=== PATIENT | female | born 1960 | race African-American/Black ===

== ENCOUNTER → 2018-05-03 | Outpatient (REF) ==
[~2018-05-03] MED LIST: ASPIRIN EC81 MG PO; ENALAPRIL5 MG PO; LORTAB 5-325 MG1 TAB PO; LOVASTATIN40 MG PO; MEGA BIOTIN10 MG PO; METFORMIN500 MG PO; MULTI VIT PO; ULTRAM50 M1 PO
== END | disposition home or self-care (01) | DRG 639 ==
LOC: LAB 07:31
PROVIDERS: ATTEND Internal Medicine Geriatric Medicine
DX: E11.9 Type 2 diabetes mellitus without complications (principal); I10 Essential (primary) hypertension

== ENCOUNTER → 2018-05-31 | Outpatient (REF) | END | disposition home or self-care (01) | DRG 696 | LOC: LABSPEC 09:48 | PROVIDERS: ATTEND Internal Medicine Geriatric Medicine | DX: R30.0 Dysuria (principal) ==

== ENCOUNTER 2018-06-09 21:13 | Emergency (ER) | payer OTHER ==
[~2018-06-09] VITALS: Ht 175.3 cm; Wt 95.0 kg
[2018-06-09 21:51] LABS: HEMATOCRIT 42.8 % (37.0-47.0); HEMOGLOBIN 13.2 g/dl (12.0-16.0); IMMATURE GRANULOCYTES 0.2 % (0.0-5.0); MEAN CELL VOLUME 93.7 fL CALC (80.0-100.0); MEAN CORPUSCULAR HGB 28.9 pG CALC (26.0-32.0); MEAN CORPUSCULAR HGB CONC 30.8 g/L CALC (32.0-36.0); NEUT# 7.35 thou/uL (2.00-7.15); RED BLOOD COUNT 4.57 mill/uL (4.20-5.60); RED CELL DISTRI WIDTH 14.4 % (11.5-15.5)
[2018-06-09 21:54] LABS: URINE BILIRUBIN - DIPSTICK NEGATIVE (NEGATIVE); URINE BLOOD DIPSTICK LARGE (NEGATIVE); URINE COLOR YELLOW; URINE GLUCOSE - DIPSTICK NEGATIVE (NEGATIVE); URINE KETONE NEGATIVE (NEGATIVE); URINE LEUK ESTERASE NEGATIVE (NEGATIVE); URINE NITRITE - DIPSTICK NEGATIVE (Negative); URINE PROTEIN - DIPSTICK NEGATIVE (NEG-TRACE); URINE UROBILINOGEN - DIPSTICK 0.2 E.U./dL (0.2)
[2018-06-09 22:03] LABS: URINE RBC TNTC RBC/hpf (0-5); URINE SQUAMOUS EPITHELIAL CELL FEW EPI/hpf (0-FEW)
[2018-06-09 22:06] LABS: ALBUMIN 4.4 g/dL (3.2-5.0); ALKALINE PHOSPHATASE 104 u/l (38-126); AMYLASE 115 u/l (30-110); ANION GAP 17 (6-22 (CALC)); BILIRUBIN, TOTAL 0.3 mg/dL (0.0-1.4); BUN 15 mg/dL (7-17); BUN/CREATININE RATIO 16 (12-20 (CALC)); CARBON DIOXIDE 28 mmol/l (22-30); CHLORIDE 100 mmol/l (95-108); CREATININE 0.9 mg/dL (0.5-1.0); GFR > 60 ML/MIN (>=60 (CALC)); GFR FOR AFR.AMER. > 60 ML/MIN (>=60 (CALC)); LIPASE 330 u/l (23-300); POTASSIUM 4.1 mmol/l (3.5-5.1); SGOT/AST 22 u/l (14-36); SODIUM 141 mmol/l (137-146); TOTAL PROTEIN 7.4 g/dL (6.3-8.2)
[2018-06-09] MEDS ORDERED: TAMSULOSIN0.4 MG PO (23:54)
[2018-06-09] MEDS ORDERED: CIPROFLOXACN500 MG PO (23:54)
[2018-06-09] MEDS ORDERED: LORTAB 1010 MG PO (23:54)
[2018-06-10 00:30] VITALS: BP 138/80
[2018-06-11] MEDS ORDERED: HORMONE REPLACEMENT PO (07:15)
[2018-06-11] MEDS ORDERED: ONDANSETRON4 MG PO (07:54)
== END 2018-06-10 00:33 | disposition home or self-care (01) | DRG 694 ==
LOC: ED 21:13
PROVIDERS: Emergency Medicine
DX: N20.1 Calculus of ureter (principal); E11.9 Type 2 diabetes mellitus without complications; I10 Essential (primary) hypertension

== ENCOUNTER 2018-06-11 06:27 | Emergency (ER) | payer OTHER ==
[~2018-06-11] VITALS: Ht 175.3 cm; Wt 77.2 kg
[~2018-06-11 06:27] MED LIST changes: +CIPROFLOXACN500 MG PO; +LORTAB 1010 MG PO; +TAMSULOSIN0.4 MG PO
[2018-06-11] MEDS ORDERED: HORMONE REPLACEMENT PO (07:15)
[2018-06-11 07:28] LABS: HEMATOCRIT 42.6 % (37.0-47.0); HEMOGLOBIN 13.3 g/dl (12.0-16.0); IMMATURE GRANULOCYTES 0.2 % (0.0-5.0); MEAN CELL VOLUME 92.2 fL CALC (80.0-100.0); MEAN CORPUSCULAR HGB 28.8 pG CALC (26.0-32.0); MEAN CORPUSCULAR HGB CONC 31.2 g/L CALC (32.0-36.0); NEUT# 9.68 thou/uL (2.00-7.15); RED BLOOD COUNT 4.62 mill/uL (4.20-5.60); RED CELL DISTRI WIDTH 14.3 % (11.5-15.5)
[2018-06-11 07:39] LABS: URINE BILIRUBIN - DIPSTICK NEGATIVE (NEGATIVE); URINE BLOOD DIPSTICK LARGE (NEGATIVE); URINE COLOR YELLOW; URINE GLUCOSE - DIPSTICK NEGATIVE (NEGATIVE); URINE KETONE 40 mg/dL (NEGATIVE); URINE LEUK ESTERASE NEGATIVE (NEGATIVE); URINE NITRITE - DIPSTICK NEGATIVE (Negative); URINE PH 6.5 (4.5-8.0); URINE PROTEIN - DIPSTICK 30 mg/dL (NEG-TRACE); URINE UROBILINOGEN - DIPSTICK 0.2 E.U./dL (0.2)
[2018-06-11 07:39] LABS: ALBUMIN 3.8 g/dL (3.2-5.0); ALKALINE PHOSPHATASE 73 u/l (38-126); ANION GAP 15 (6-22 (CALC)); BILIRUBIN, TOTAL 0.2 mg/dL (0.0-1.4); BUN 16 mg/dL (7-17); BUN/CREATININE RATIO 24 (12-20 (CALC)); CARBON DIOXIDE 26 mmol/l (22-30); CHLORIDE 102 mmol/l (95-108); CREATININE 0.7 mg/dL (0.5-1.0); GFR > 60 ML/MIN (>=60 (CALC)); GFR FOR AFR.AMER. > 60 ML/MIN (>=60 (CALC)); LIPASE 557 u/l (23-300); POTASSIUM 3.8 mmol/l (3.5-5.1); SGOT/AST 21 u/l (14-36); SODIUM 139 mmol/l (137-146); TOTAL PROTEIN 6.4 g/dL (6.3-8.2)
[2018-06-11 07:40] LABS: URINE RBC >100 RBC/hpf (0-5)
[2018-06-11] MEDS ORDERED: ONDANSETRON4 MG PO (07:54)
[2018-06-11 08:12] VITALS: BP 117/68
[2018-06-15] MEDS ORDERED: GLIPIZIDE ER5 M1 PO (13:59)
[2018-06-15] MEDS ORDERED: METFORMIN HYD1000 MG PO (14:00)
[2018-06-15] MEDS ORDERED: ESTRACE0.5 MG PO (14:01)
== END 2018-06-11 08:12 | disposition home or self-care (01) | DRG 392 ==
LOC: ED 06:27
PROVIDERS: Emergency Medicine
DX: R11.2 Nausea with vomiting, unspecified (principal); T50.905A Adverse effect of unspecified drugs, medicaments and biological substances, initial encounter; N20.0 Calculus of kidney; E11.9 Type 2 diabetes mellitus without complications; I10 Essential (primary) hypertension

== ENCOUNTER 2018-06-16 10:08 | Day surgery (SDC) | payer OTHER ==
[~2018-06-16 10:08] MED LIST changes: +ASPIRIN EC325 MG PO; -ASPIRIN EC81 MG PO; +ESTRACE0.5 MG PO; +GLIPIZIDE ER5 M1 PO; +HORMONE REPLACEMENT PO; +METFORMIN HYD1000 MG PO; +ONDANSETRON4 MG PO
[2018-06-16] MEDS ORDERED: PERCOCET 10/31 COMBO PO (13:40)
[2018-06-16 14:00] VITALS: BP 120/58
== END 2018-06-16 14:40 | disposition home or self-care (01) | DRG 661 ==
LOC: ORM 10:08
PROVIDERS: ATTEND Urology
PROC: 0T778DZ Dilation of Left Ureter with Intraluminal Device, Via Natural or Artificial Opening Endoscopic (ICD-10-PCS; principal; 2018-06-16)
PROC: BT1FZZZ Fluoroscopy of Left Kidney, Ureter and Bladder (ICD-10-PCS; 2018-06-16)
DX: N13.2 Hydronephrosis with renal and ureteral calculous obstruction (principal); E11.9 Type 2 diabetes mellitus without complications; I10 Essential (primary) hypertension
CPT/HCPCS: C1769; Q9967

== ENCOUNTER 2018-07-02 06:29 | Day surgery (SDC) | payer OTHER ==
[~2018-07-02 06:29] MED LIST changes: +PERCOCET 10/31 COMBO PO
[2018-07-02] MEDS ORDERED: PERCOCET 10/31 COMBO PO (10:47)
[2018-07-02 11:12] VITALS: BP 130/65
== END 2018-07-02 11:40 | disposition home or self-care (01) | DRG 661 ==
LOC: ORM 06:29
PROVIDERS: ATTEND Urology
PROC: 0TC18ZZ Extirpation of Matter from Left Kidney, Via Natural or Artificial Opening Endoscopic (ICD-10-PCS; principal; 2018-07-02)
PROC: 0TC78ZZ Extirpation of Matter from Left Ureter, Via Natural or Artificial Opening Endoscopic (ICD-10-PCS; 2018-07-02)
PROC: 0T778DZ Dilation of Left Ureter with Intraluminal Device, Via Natural or Artificial Opening Endoscopic (ICD-10-PCS; 2018-07-02)
PROC: 0TP98DZ Removal of Intraluminal Device from Ureter, Via Natural or Artificial Opening Endoscopic (ICD-10-PCS; 2018-07-02)
DX: N20.2 Calculus of kidney with calculus of ureter (principal); I10 Essential (primary) hypertension; E11.9 Type 2 diabetes mellitus without complications
CPT/HCPCS: Q9967

== ENCOUNTER 2018-12-17 06:34 | Emergency (ER) | payer OTHER ==
[~2018-12-17] VITALS: Ht 170.2 cm; Wt 93.0 kg
[2018-12-17 07:30] LABS: IMMATURE GRANULOCYTES 0.1 % (0.0-5.0); MEAN CELL VOLUME 91.9 fL CALC (80.0-100.0); MEAN CORPUSCULAR HGB 28.9 pG CALC (26.0-32.0); MEAN CORPUSCULAR HGB CONC 31.4 g/L CALC (32.0-36.0); NEUT# 3.95 thou/uL (2.00-7.15); RED BLOOD COUNT 4.92 mill/uL (4.20-5.60); RED CELL DISTRI WIDTH 13.7 % (11.5-15.5)
[2018-12-17 07:31] LABS: HEMATOCRIT 45.2 % (37.0-47.0); HEMOGLOBIN 14.2 g/dl (12.0-16.0)
[2018-12-17 07:43] LABS: ALBUMIN 4.3 g/dL (3.2-5.0); ALKALINE PHOSPHATASE 91 u/l (38-126); ANION GAP 13 (6-22 (CALC)); BILIRUBIN, TOTAL 0.3 mg/dL (0.0-1.4); BUN 11 mg/dL (7-17); BUN/CREATININE RATIO 12 (12-20 (CALC)); CARBON DIOXIDE 29 mmol/l (22-30); CHLORIDE 103 mmol/l (95-108); CREATININE 0.9 mg/dL (0.5-1.0); GFR > 60 ML/MIN (>=60 (CALC)); GFR FOR AFR.AMER. > 60 ML/MIN (>=60 (CALC)); POTASSIUM 4.2 mmol/l (3.5-5.1); SGOT/AST 23 u/l (14-36); SODIUM 140 mmol/l (137-146); TOTAL PROTEIN 7.4 g/dL (6.3-8.2)
[2018-12-17 07:55] LABS: MYOGLOBIN 46 ng/mL (0 - 62)
[2018-12-17] MEDS ORDERED: LORATADINE10 M1 PO (08:31)
[2018-12-17 08:58] LABS: URINE BILIRUBIN - DIPSTICK NEGATIVE (NEGATIVE); URINE BLOOD DIPSTICK NEGATIVE (NEGATIVE); URINE COLOR YELLOW; URINE GLUCOSE - DIPSTICK NEGATIVE (NEGATIVE); URINE KETONE NEGATIVE (NEGATIVE); URINE LEUK ESTERASE NEGATIVE (NEGATIVE); URINE NITRITE - DIPSTICK NEGATIVE (Negative); URINE PH 6.5 (4.5-8.0); URINE PROTEIN - DIPSTICK NEGATIVE (NEG-TRACE); URINE UROBILINOGEN - DIPSTICK 0.2 E.U./dL (0.2)
[2018-12-17] MEDS ORDERED: ANTIVERT PO (09:17)
[2018-12-17] MEDS ORDERED: AUGMENTIN500TAB PO (09:17)
[2018-12-17 09:43] VITALS: BP 112/62
== END 2018-12-17 09:43 | disposition home or self-care (01) | DRG 149 ==
LOC: ED 06:34
PROVIDERS: Emergency Medicine
DX: H83.01 Labyrinthitis, right ear (principal); E11.9 Type 2 diabetes mellitus without complications; I10 Essential (primary) hypertension; Z79.84 Long term (current) use of oral hypoglycemic drugs